=== PATIENT | male | born 1985 | race Caucasian/White ===

== ENCOUNTER → 2019-11-20 | Outpatient (CLI) | payer BC ==
[~2019-11-20] MED LIST: IOPAMIDOL 370 MG/ML 200 ML INFUS..BTL INJ ONE; METOPROLOL TARTRATE INJ 1 MG/ML VIAL ONE; NITROGLYCERIN 0.4 MG SUBL ONE; SODIUM CHLORIDE 0.9% 50ML 50 ML ONE
[2019-11-20 08:35] LABS: BLOOD UREA NITROGEN 17 mg/dL (7-26); BUN/CREATININE RATIO 14 (6-25); CREATININE, SERUM 1.21 mg/dL (0.72-1.25); EST GLOMERULAR FILTRATION RATE > 60 ML/MIN (60-)
--- NOTE | 2019-11-20 14:55 | Diagnostic Imaging Report ---
EXAM: CALCIUM SCORE AND CORONARY CTA INDICATION: ^[id number] ^[id number] COMPARISON: None. TECHNIQUE: Multi-detector CT technology was employed (64 MDCT Weaved). Minimal slice thickness was performed following the intravenous administration of contrast material. The patient was premedicated with 5 mg i.v. metoprolol and 0.4 mg sublingual nitroglycerin for heart rate control and coronary dilation, respectively. IV CONTRAST: 100 mL of Isovue-370 ORAL CONTRAST: None COMPLICATIONS: None RADIATION DOSE: Total DLP: 1488.7 mGy*cm Estimated effective dose: (DLP x 0.015 x size factor) mSv CTDIvol has been reviewed. It is below the limits set by the Radiation Protocol Committee (RPC). For optimization of anatomic evaluation, multiplanar reconstruction, maximum intensity projections, and advanced 3-D off-line postprocessing were performed on a dedicated stand-alone workstation under the direct supervision of the interpreting physician. QUALITY: Very good FINDINGS: CALCIUM SCORE: The observed Agatston Calcium Score of 0 is at percentile 25% for subjects of the same age and gender who are free of clinical cardiovascular disease and treated diabetes. The Agatston score for each vessel is as follows: LM: 0 LAD: 0 LCx: 0 RCA: 0 DISTRIBUTION OF THE CALCIFIED PLAQUES: No identifiable calcified plaques in the coronary arteries. CORONARY ANATOMY: There is normal origin of the coronary arteries. Left Main Coronary Artery: The left main is normal sized and long vessel, measuring 2.6 cm in length, that trifurcates into the LAD, small ramus intermedius, and hypoplastic circumflex. There is no evidence of atherosclerotic changes or stenotic disease. Left Anterior Descending Coronary Artery: The LAD is a large size vessel that wraps around the apex. It gives rise to 1 acute diagonal branches. There is no evidence of atherosclerotic changes or stenotic disease. Ramus Intermedius: The ramus intermedius is a small size vessel that supervised the anterolateral wall of the left ventricle. Left Circumflex Coronary Artery: The LCX is hypoplastic. It gives rise to 1 large obtuse marginal branches. No visualized LCx had AV groove, however, there are few collaterals from the distal RCA that supplies the distal course of the LCx. There is no evidence of atherosclerotic changes or stenotic disease. Right Coronary Artery: The RCA is a large size vessel, which is dominant. It gives rise to a conus branch, AV gamaliel branch, and 2 acute marginal branches. In its distal segment it bifurcates into the PDA and PV branch. There is no evidence of atherosclerotic changes or stenotic disease. CARDIAC MORPHOLOGY AND FUNCTION: The right and left atria and ventricles are morphologically normal. There is normal resting global left ventricular systolic function. LVEF: 69.8%, LV end diastolic volume: 205 cc LV end systolic volume: 89 cc LV stroke volume: 143 cc LIMITED CHEST: Limited views of the visualized chest show no abnormality within chest wall and mediastinum. No mediastinal lymphadenopathy. The visualized lungs are clear. The visualized portions of the ascending and descending thoracic aorta are of normal size. LIMITED ABDOMEN: Limited images of the upper abdomen reveal no abnormalities of the visualized organs. BONES: No acute osseous abnormalities. IMPRESSION: 1. Total Agatston Calcium Score: 0 that corresponds to percentile 0%, representing no identifiable calcified plaques in the coronary arteries. 2. Normal coronary anatomy variant with hypoplastic LCx as described above. 3. No evidence of atherosclerotic changes or stenotic disease within the coronary arteries. CAD-ALLEN: 0 Reference: [email or web address] Signed by: Dr. Marilin Jordan M.D. on 11/20/2019 2:51 PM
== END ==
LOC: CT 07:49
PROVIDERS: ATTEND Internal Medicine Cardiovascular Disease
DX: R07.9 Chest pain, unspecified (principal)
CPT/HCPCS: 36415; 75574; 82565; 84520; Q9967

== ENCOUNTER → 2020-05-09 | Day surgery (SDC) | payer BC, OTHER ==
[~2020-05-09] VITALS: Ht 180.3 cm; Wt 108.9 kg
[2020-05-09] VITALS (11 sets, daily range): BP systolic 102–153; BP diastolic 62–95
[~2020-05-09] MED LIST changes: +FENTANYL CITRATE/PF 100MCG/2 ML INJ ONE; +HEPARIN SOD/SOD CHLORIDE 2,000 ML ONE; +HYDROCHLOROTHIA25 MG PO; +LIDOCAINE HCL 2% LOCAL 20 ML VIAL ONE; +LIPITOR20 MG PO; +LOSARTAN POTAS100 MG PO; -METOPROLOL TARTRATE INJ 1 MG/ML VIAL ONE; +MIDAZOLAM HCL 2 MG/2 ML VIAL ONE; -NITROGLYCERIN 0.4 MG SUBL ONE; +SODIUM CHLORIDE 0.9% 1000ML 1,000 ML ONE; -SODIUM CHLORIDE 0.9% 50ML 50 ML ONE
--- NOTE | 2020-05-09 13:00 | NUR ---
pt in pre-op 7 , Alert oriented and appropriate, PERRLA, respirations even and unlabored to room air. Pulses x4 extremities equal and palpable . Cap fill brisk < 3 sec. + neurovascular function to right hand, TR band present. Skin warm and dry integrity appears intact in general. IV to left forearm and presents healthy w/o s/s of infiltration or complaint. Abdomen soft and supple. pt offered toileting, denies need to urinate or defecate. Personal affects with patient. Family called post procedure to beside . Pt verbalizes understanding of POC for discharge. Educated instructional designer light use. bed low and locked, side rails up x2 and call light at side. diet provided. pt using provided/ personal mask for COVID-19 mitigation. -cgf
--- NOTE | 2020-05-09 14:11 | Operative Report ---
DATE OF PROCEDURE: SURGEON: Shant Bernardo DO PREPROCEDURE DIAGNOSES: Abnormal stress test for chest pain and abnormal CT angiogram. POSTPROCEDURE DIAGNOSIS: No significant coronary artery disease. ESTIMATED BLOOD LOSS: Less than 10 mL. SPECIMENS REMOVED: None. PROCEDURE IN DETAIL: After informed consent was obtained, the patient was brought to the cardiac catheterization laboratory in a fasting and nonsedated state. Bilateral groins and right wrist were prepped and draped in usual sterile fashion. A 2% lidocaine was infiltrated over the right anterior wrist for local anesthesia. Using micropuncture needle, the right radial artery was accessed via the modified Seldinger technique and 5/6 Slender sheath was placed. Next, diagnostic selective coronary angiography and left heart catheterization was performed using a Kwesi catheter. The patient tolerated the procedure well with no immediate complications and transferred back to his room in stable condition. PROCEDURAL FINDINGS: 1. Left main coronary artery is patent without significant disease. 2. Left anterior descending coronary artery is patent with no significant disease. 3. The ramus intermedius coronary artery is patent with mild luminal irregularities. 4. Left circumflex coronary artery provides 1 obtuse marginal vessel and has proximal luminal irregularities. 5. The right coronary artery is a large dominant vessel and provides 2 large posterior lateral branches and a large posterior descending coronary artery without significant stenotic disease. 6. Left ventricular end-diastolic pressure is 13 mmHg. No aortic valve gradient present upon pullback. IMPRESSION: No significant coronary artery disease with history of hyperlipidemia. RECOMMENDATIONS: Continue medical therapy. Shant Bernardo DO BM/MODL /[id number]
--- NOTE | 2020-05-09 14:15 | NUR ---
Pt w/ c/o of "hot flash", diaphoresis, and light headedness. BP trend 130's systolic now 100's, HR to mid 60's from 80's. Pt denies nausea, pain, or need aside, "pain in my butt because of this bed", denies having DM. skin warm and clammy. HOB changed from sitting to flat, IV bolus provided 250ml. spouse at bedside. no other distress or complaint at this time. spouse at bedside.
--- NOTE | 2020-05-09 14:40 | NUR ---
Pt w/o further duress. Right wrist w/o s/s of bleeding. Skin warm and dry. Pt states, " my head feels heavy but otherwise i feel much better". HOB raised for tolerance. Spouse claims increased color in pt appearance.
--- NOTE | 2020-05-09 15:00 | NUR ---
Pt tolerating HOB elevated. No other gross issues. TR band removed. + neurovascular function. dressing applied. pt up for BRP. + balance and gait. no gross deficits.
--- NOTE | 2020-05-09 15:10 | NUR ---
Pt meets discharge criteria. VS wnl, alert and oriented. Pt and Family Understands discharge instruction. Overall general assess w/o gross outliers. Skin warm, dry, and intact. Right radial dressing soft w/o s/s of hematoma. Pedal pulses unchanged. IV removed and appears distal tip is intact. Pt maintains mask on for COVID 19 precautions being taken by wheel chair to awaiting car. Transfers w/o gross distress with discharge paperwork in hand.
== END | disposition home or self-care (01) ==
LOC: CATH LAB 09:31
PROVIDERS: ATTEND Internal Medicine Cardiovascular Disease
DX: I25.10 Atherosclerotic heart disease of native coronary artery without angina pectoris (principal); R94.39 Abnormal result of other cardiovascular function study; I10 Essential (primary) hypertension; E78.2 Mixed hyperlipidemia; Z68.34 Body mass index [BMI] 34.0-34.9, adult; Z82.49 Family history of ischemic heart disease and other diseases of the circulatory system
CPT/HCPCS: 93458; C1894; J2001; J2250; J3010; J7030; Q9967; U0002; 99152